=== PATIENT | female | born 1965 | race Caucasian/White ===

== ENCOUNTER → 2019-03-09 | Outpatient (CLI) | payer OTHER ==
--- NOTE | 2019-03-13 22:40 | SLEEP ---
[address] [address] SLEEP STUDY REPORT Name: CHRIS PALOMINO Room: [facility]#: [id number] Admission: 03/09/19 Attend Phys: NATHALIE VELIZ Discharge: Date of : 69 Report #: [id number] THIS REPORT FOR: //name// CC: TALITA Arizmendi This study has been reviewed in its entirety by a board certified sleep specialist DATE OF SERVICE: 03/09/2019 SLEEP STUDY REFERRING PHYSICIAN: Dr. Nathalie Veliz. The patient is a 53-year-old who weighs 130 pounds with a BMI of 21.6. The patient's Hampton score was 16. The patient underwent diagnostic sleep study performed at [facility]. During the night study, the patient spent 433 minutes in bed and slept for 418 minutes with a normal sleep efficiency of 96%. Sleep latency was 5 minutes with a REM latency of 64.5 minutes. Sleep architecture showed normal stage 1 and stage 2 sleep, normal slow wave and normal REM sleep. During the night of the study, the patient had 23 obstructive apneas, no mixed apneas, 2 central apneas and 12 hypopneas. The patient's apnea hypopnea index was 5.3 per hour with a REM index of 21.6 per hour and a supine index of 10 per hour. EKG monitoring revealed an average heart rate of 69 beats per minute. No sustained arrhythmias observed. PLMS were not observed. Nocturnal oximetry study revealed an average oxygen saturation of 97% with a lowest of 87%. Only 0.2 minutes were spent in oxygen saturation of less than 89%. Due to low AHI, the patient did not meet the split night criteria for CPAP initiation. IMPRESSION: 1. Mild sleep apnea-hypopnea syndrome with moderate increase during REM sleep. Total AHI of 5.3 per hour with a REM AHI of 21.6 per hour. 2. No clinically [place] [address] SLEEP STUDY REPORT Name: CHRIS PALOMINO Room: [facility]#: [id number] Admission: 03/09/19 Attend Phys: NATHALIE VELIZ Discharge: Date of : 69 Report #: [id number] 3. No clinically significant periodic limb movements. RECOMMENDATIONS: 1. The patient did not meet the split night criteria for CPAP initiation due to low AHI. 2. The patient is clinically symptomatic with subjective hypersomnia with an Hampton score of 16. I would recommend treating the patient's sleep apnea, even though mild with either oral appliance versus trial of CPAP. 3. Once the patient is optimally treated, then follow up in 4-6 weeks to assess compliance with treatment and to document clinical improvement. 4. Avoid [employer] depressants. 5. Cautioned regarding driving until the patient's hypersomnia is resolved. <ELECTRONICALLY SIGNED> By: Eliu Cueva MD 03/13/19 [id number] Wilma Cueva MD /[email or web address]
== END ==
LOC: M.SLEEPLAB 19:59
DX: G47.33 Obstructive sleep apnea (adult) (pediatric) (principal); G47.34 Idiopathic sleep related nonobstructive alveolar hypoventilation